=== PATIENT | female | born 1945 | race Caucasian/White ===

== ENCOUNTER → 2016-04-28 | Day surgery (SDC) | payer BC ==
[2016-04-19 11:19] VITALS: Ht 154.9 cm; Wt 63.6 kg
[~2016-04-28] VITALS: Ht 154.9 cm; Wt 63.6 kg
[~2016-04-28] MED LIST: ASPCH81X PO; ATOR10TA88 PO; CIPR-255 PO; COEN100C11 PO; LIDOCAINE HCL 2% 2 ML VIAL (20MG/ML) ONE; MIDAZOLAM HCL 1 MG/ML 2ML VIAL ONE; MULT-240 PO; MULT-506 PO; OMEG10007 PO; ONDANSETRON INJ 2 MG/ML 2 ML VIAL ONE; PROPOFOL IV EMULSION 10 MG/ML 20 ML VIAL IV ONE; SODIUM CHLORIDE 0.9% 500ML 500 ML IV ONE
--- NOTE | 2016-04-28 14:36 | Endo History and Physical ---
History & Physical Date of Service: Apr 28, 2016. Chief Complaint: Screening Referring Physician: Dr. Reese Chin History of Present Illness 71 yo CF who presents for screening colonoscopy. Past Surgical History Hx Cardiac Surgery: No Hx Internal Defibrillator: No Hx Pacemaker: No Hx Abdominal Surgery: Yes (CERVICAL PROCEDURE?) Hx of Implantable Prosthesis: No Hx Post-Op Nausea and Vomiting: No Hx Cancer Surgery: No Hx Thoracic Surgery: No Hx Orthopedic: No Hx Urinary Tract Surgery: No Family History None Social History Smoking Status: Never Smoker Hx Substance Use: No Hx Alcohol Use: Yes (OCCASSIONALLY) Allergies Coded Allergies: Succinylcholine (Verified Allergy, Unknown, WOULD NOT WAKE UP, SISTER HAD BAD REACTION, 04/19/16) Thimerosal (Verified Allergy, Unknown, EYE IRRITATION, 04/19/16) Current Medications Reported Home Medications Medications Dose Route/Sig Max Daily Dose Days Date Category Aspirin Chewable (Aspirin) 81 Mg Chew 81 Mg PO DAILY AFTERNOON 04/19/16 Reported Coq-10 (Coenzyme Q10 (Ubidecarenone)) 100 Mg Cap 1 Cap PO DAILY AFTERNOON 04/19/16 Reported Multivitamin (Multivitamins) Tab 1 Tab PO QAM 04/19/16 Reported Kincaid-3 (Fish Oil) 1 Ea Cap 1 Cap PO DAILY AFTERNOON 04/19/16 Reported Lipitor (Atorvastatin Calcium) 10 Mg Tab 10 Mg PO HS 04/19/16 Reported Vital Signs Weight (Kilograms): 63.64 Height (Feet): 5 Height (Inches): 1 Date Time Temp Pulse Resp B/P Pulse Ox O2 Delivery O2 Flow Rate FiO2 04/28/16 14:22 36.9 77 20 136/78 96 Room Air Physical Exam General Appearance: WD/WN, no apparent distress Respiratory/Chest: Auscultation: breath sounds normal Cardiovascular: Heart Auscultation: RRR Abdomen: Bowel Sounds: normal Inspection & Palpation: soft, non-distended, no tenderness, guarding & rebound Assessment and Plan Assessment: 71 yo CF who presents for screening colonoscopy. Plan: Proceed with colonoscopy
--- NOTE | 2016-04-28 15:52 | Discharge Instructions ---
Endoscopy Patient Instructions Date / Procedure(s) Performed Apr 28, 2016. Colonoscopy Allergy Information Coded Allergies: Succinylcholine (Verified Adverse Reaction, Severe, WOULD NOT WAKE UP, SISTER HAD BAD REACTION, 04/28/16) Thimerosal (Verified Adverse Reaction, Unknown, EYE IRRITATION, 04/28/16) Discharge Date / Findings Apr 28, 2016. Diverticulosis Medication Instructions Stopped Medication(s): Patient was told to not take any of her vitamins until after the procedure today. OK to resume all medications today as prescribed Reported Home Medications Medications Dose Route/Sig Max Daily Dose Days Date Category Aspirin Chewable (Aspirin) 81 Mg Chew 81 Mg PO DAILY AFTERNOON 04/19/16 Reported Coq-10 (Coenzyme Q10 (Ubidecarenone)) 100 Mg Cap 1 Cap PO DAILY AFTERNOON 04/19/16 Reported Multivitamin (Multivitamins) Tab 1 Tab PO QAM 04/19/16 Reported Taiban-3 (Fish Oil) 1 Ea Cap 1 Cap PO DAILY AFTERNOON 04/19/16 Reported Lipitor (Atorvastatin Calcium) 10 Mg Tab 10 Mg PO HS 04/19/16 Reported Provider Instructions Activity Restrictions - No exercising or heavy lifting for 24 hours. - Do not drink alcohol the day of the procedure. - Do not drive a car or operate machinery until the day after the procedure. - Do not make any important decisions or sign important papers in 24 hours after the procedure. Following Day: - Return to full activity which may include returning to work/school. Diet Start your diet with liquids and light foods (jello, soup, juice, toast). Then eat your usual diet if not nauseated. Treatment For Common After Affects For mild abdominal pain, bloating, or excessive gas: - Rest - Eat lightly - Lie on right side Follow-Up Information Follow-up with Dr. Reese Chin as scheduled Anesthesia Information What You Should Know You have had a procedure that required some medicine to reduce anxiety and discomfort. This treatment is called moderate sedation. After receiving the treatment, you may be sleepy, but you will be able to breathe on your own. The effects of the treatment may last for several hours. Follow these instructions along with Activity/Diet recommendations noted above: * Do NOT do anything where dizziness or clumsiness would be dangerous. * Rest quietly at home today, then you can be up and about tomorrow. * Have a responsible person stay with you the rest of today. * You may have had an I.V. today. If so, you may take the dressing off later today. Recommendations Call your doctor if: * Trouble breathing * Continuous vomiting for more than 24 hours * Temperature above 101 degrees * Severe abdominal pain or bloating * Pain not relieved by pain medicine ordered * There is increased drainage or redness from any incision * A large amount of rectal bleeding greater than 2-3 tablespoons. (If you had a polyp/s removed or have hemorrhoids, a small amount of blood - from the rectum is to be expected.) * You have any unanswered questions or concerns. IN THE EVENT OF A SERIOUS EMERGENCY, GO TO THE NEAREST EMERGENCY ROOM Your discharge instructions were prepared by provider Abdulaziz Scanlon. Patient Instructions Signature Page Laila Gleason Patient (or Guardian) Signature/Date: I have read and understand the instructions given to me by my caregivers. Caregiver/RN/Doctor Signature/Date: The above-named patient and/or guardian has received patient instructions on this date. + Original Patient Signature Page (only) stays with chart. Please make copy for patient.
--- NOTE | 2016-04-28 15:57 | Anesthesiology Progress Note ---
Anesthesia Post Op Note Date & Time Apr 28, 2016 at 15:56 Vital Signs Pain Intensity: 0 Vital Signs Past 12 Hours Date Time Temp Pulse Resp B/P Pulse Ox O2 Delivery O2 Flow Rate FiO2 04/28/16 15:48 65 18 106/68 99 Room Air 04/28/16 15:44 101/62 04/28/16 15:34 61 18 89/52 99 Room Air 04/28/16 14:22 36.9 77 20 136/78 96 Room Air Notes Mental Status: alert / awake / arousable, participated in evaluation Pt Amnestic to Procedure: Yes Nausea / Vomiting: adequately controlled Pain: adequately controlled Airway Patency, RR, SpO2: stable & adequate BP & HR: stable & adequate Hydration State: stable & adequate Anesthetic Complications: no major complications apparent
--- NOTE | 2016-04-28 15:58 | GI REPORT ---
Procedure Date: 04/28/2016 3:04 PM Procedure: Colonoscopy Indications: Screening for colorectal malignant neoplasm Medicines: Monitored Anesthesia Care Complications: No immediate complications. Estimated Blood Loss: Estimated blood loss: none. Procedure: Pre-Anesthesia Assessment: - Prior to the procedure, a History and Physical was performed, and patient medications and allergies were reviewed. The patient's tolerance of previous anesthesia was also reviewed. The risks and benefits of the procedure and the sedation options and risks were discussed with the patient. All questions were answered, and informed consent was obtained. Prior Anticoagulants: The patient has taken aspirin, last dose was 1 day prior to procedure. ASA Grade Assessment: II - A patient with mild systemic disease. After reviewing the risks and benefits, the patient was deemed in satisfactory condition to undergo the procedure. After I obtained informed consent, the scope was passed under direct vision. Throughout the procedure, the patient's blood pressure, pulse, and oxygen saturations were monitored continuously. The scope was introduced through the anus and advanced to the terminal ileum. The colonoscopy was performed without difficulty. The patient tolerated the procedure well. The quality of the bowel preparation was good. The terminal ileum, ileocecal valve, appendiceal orifice, and rectum were photographed. Findings: Multiple small-mouthed diverticula were found in the sigmoid colon. Impression: - Diverticulosis in the sigmoid colon. - No specimens collected. Recommendation: - Resume previous diet. - Continue present medications. - Repeat colonoscopy in 10 years for surveillance. - Return to primary care physician as previously scheduled. Abdulaziz Scanlon DO 04/28/2016 3:57:35 PM This report has been signed electronically. Note Initiated On: 04/28/2016 3:04 PM
[2016-04-28 16:03] VITALS: BP 110/75; PULSE 55; O2SAT 99
== END | disposition home or self-care (01) ==
LOC: C.GI 13:32
PROVIDERS: ATTEND Internal Medicine
DX: Z12.11 Encounter for screening for malignant neoplasm of colon (principal); K57.30 Diverticulosis of large intestine without perforation or abscess without bleeding

== ENCOUNTER → 2016-09-28 | Outpatient (CLI) | payer BC ==
[~2016-09-28] MED LIST changes: +ATOR10TA82 PO; -ATOR10TA88 PO; -LIDOCAINE HCL 2% 2 ML VIAL (20MG/ML) ONE; -MIDAZOLAM HCL 1 MG/ML 2ML VIAL ONE; -ONDANSETRON INJ 2 MG/ML 2 ML VIAL ONE; -PROPOFOL IV EMULSION 10 MG/ML 20 ML VIAL IV ONE; -SODIUM CHLORIDE 0.9% 500ML 500 ML IV ONE
[2016-09-28 12:23] LABS: BASO % 0.2 %; BASO ABS # 0.01 K/uL (0-0.2); COMPLETE YES; EOS % 5.5 %; HEMATOCRIT 38.3 % (37-47); IG% 0.2 %; LYMPH % 32.5 %; LYMPH ABS # 1.61 K/uL (1.2-3.4); MEAN CELL VOLUME 89.7 fL (80-100); MEAN CORPUSCULAR HEMOGLOBIN 29.3 pg (25-34); MEAN CORPUSCULAR HGB CONC 32.6 g/dl (32-36); MEAN PLATELET VOLUME 10.5 fL (7.4-10.4); MONO % 8.9 %; NEUT % 52.7 %; PLATELET COUNT 281 K/uL (130-400); RED BLOOD COUNT 4.27 M/uL (4.2-5.4); WHITE BLOOD COUNT 4.95 K/uL (4.8-10.8)
[2016-09-28 12:38] LABS: URINE APPEARANCE CLEAR (CLEAR); URINE BILIRUBIN NEG (NEG); URINE COLOR YELLOW; URINE NITRITE NEG (NEG); URINE PH 5.5 (4.5-7.5); URINE SPECIFIC GRAVITY 1.012 (1.000-1.030); UROBILINOGEN NEG (NEG); ZZUR CULT IF INDIC CLEAN CATCH YES
[2016-09-28 12:47] LABS: MANUAL MICROSCOPIC REQUIRED? NO; REVIEW REQ? NO
[2016-09-28 13:53] LABS: ALT/SGPT 23 U/L (12-78); BLOOD UREA NITROGEN 18 mg/dl (7-18); BUN/CREATININE RATIO 16.3 (10-20); CALCIUM 9.2 mg/dl (8.5-10.1); CARBON DIOXIDE 28 mmol/L (21-32); CHLORIDE 105 mmol/L (98-107); CHOLESTEROL 165 mg/dl (0-200); GLUCOSE 89 mg/dl (70-99); SODIUM 139 mmol/L (136-145); TRIGLYCERIDES 56 mg/dl (0-150); VERY LOW DENSITY LIPOPROT CALC 11 mg/dl
[2016-09-28 13:57] LABS: ALB/GLOB RATIO 1.1 (0.9-2); ALKALINE PHOSPHATASE 92 U/L (45-117); AST/SGOT 15 U/L (15-37); CHOLESTEROL/HDL RATIO 2.2; HDL CHOLESTEROL 75 mg/dl; LDL CHOLESTEROL CALCULATED 79 mg/dl
== END | disposition home or self-care (01) ==
LOC: C.LABBFT 08:15
PROVIDERS: ATTEND Internal Medicine
DX: Z13.6 Encounter for screening for cardiovascular disorders (principal); E78.5 Hyperlipidemia, unspecified; E55.9 Vitamin D deficiency, unspecified

== ENCOUNTER 2016-10-04 21:57 | Emergency (ER) | payer BC ==
[~2016-10-04] VITALS: Ht 154.9 cm; Wt 63.5 kg
[~2016-10-04 21:57] MED LIST changes: -ATOR10TA82 PO; +ATOR10TA88 PO; -CIPR-255 PO; -MULT-240 PO
[2016-10-04 22:01] VITALS: Ht 154.9 cm; Wt 63.5 kg
[2016-10-04] MEDS ORDERED: MULT-240 PO (22:34)
[2016-10-04] MEDS ORDERED: ACETAMINOPHEN 500 MG TAB PO STA (22:38)
[2016-10-04] MEDS ORDERED: SODIUM CHLORIDE 0.9% 1000ML 1,000 ML IV STA ×2 (22:38)
[2016-10-04] MEDS ORDERED: CEFTRIAXONE SOD INJ 1 GM ADDVIAL IV STA (22:59)
[2016-10-04 23:12] LABS: URINE APPEARANCE CLEAR (CLEAR); URINE BILIRUBIN NEG (NEG); URINE COLOR YELLOW; URINE NITRITE NEG (NEG); URINE SPECIFIC GRAVITY 1.009 (1.000-1.030); UROBILINOGEN NEG (NEG)
[2016-10-04 23:13] LABS: MANUAL MICROSCOPIC REQUIRED? NO; REVIEW REQ? NO
[2016-10-04 23:18] VITALS: O2SAT 98
[2016-10-04 23:21] LABS: BASO % 0.2 %; BASO ABS # 0.01 K/uL (0-0.2); COMPLETE YES; EOS % 0.4 %; HEMATOCRIT 36.7 % (37-47); IG% 0.4 %; LYMPH % 18.2 %; LYMPH ABS # 0.84 K/uL (1.2-3.4); MEAN CORPUSCULAR HEMOGLOBIN 29.6 pg (25-34); MEAN CORPUSCULAR HGB CONC 34.1 g/dl (32-36); MEAN PLATELET VOLUME 9.8 fL (7.4-10.4); MONO % 16.7 %; NEUT % 64.1 %; PLATELET COUNT 192 K/uL (130-400); RED BLOOD COUNT 4.22 M/uL (4.2-5.4); WHITE BLOOD COUNT 4.61 K/uL (4.8-10.8)
[2016-10-04 23:30] LABS: PROTHROMBIN TIME (PATIENT) 10.8 SECONDS (9.0-12.0)
[2016-10-04 23:41] LABS: ALT/SGPT 28 U/L (12-78); AST/SGOT 26 U/L (15-37); BLOOD UREA NITROGEN 16 mg/dl (7-18); BUN/CREATININE RATIO 10.8 (10-20); CALCIUM 9.1 mg/dl (8.5-10.1); CARBON DIOXIDE 26 mmol/L (21-32); CHLORIDE 101 mmol/L (98-107); GLUCOSE 90 mg/dl (70-99); MAGNESIUM 2.2 mg/dl (1.8-2.4); SODIUM 137 mmol/L (136-145)
[2016-10-04 23:49] LABS: ALKALINE PHOSPHATASE 84 U/L (45-117); THYROID STIMULATING HORMONE 0.773 uIu/ml (0.300-4.500)
[2016-10-05 00:08] LABS: LYME DISEASE AB IGG NEG (NEG); LYME DISEASE AB IGM NEG (NEG)
[2016-10-05 00:12] VITALS: TEMP 37.3
[2016-10-05] MEDS ORDERED: CIPROFLOXACIN 500MG HOME PACK PO ONE (00:30)
[2016-10-05 00:31] VITALS: BP 107/58
[2016-10-05] MEDS ORDERED: CIPR-255 PO (00:31)
[2016-10-05 00:47] VITALS: PULSE 67; O2SAT 94
--- NOTE | 2016-10-05 02:20 | EMERGENCY ROOM VISIT NOTE ---
History Report prepared by Isac: Ashley Vivar Under the Supervision of: Dr. Ankush Quintanilla M.D. First contact with patient: 22:38 Chief Complaint: FEVER Stated Complaint: REACTION TO ANTIBIOTIC?- FEVER - ACHE-NOT HUNGRY History of Present Illness The patient is a 71 year old female who presents to the Emergency Room with complaints of a persistent fever for the past 2 days. She reports last week she was found to have a UTI at Dr. Chin's office and was placed on antibiotics, which she finished yesterday. On September 28, she had blood work done and her CBC was normal, chemistry's and LFT's were normal and her urine sample culture grew out e-coli, which was sensitive to Bactrim and resistant to Ampicillin. Her urinary symptoms have been improving. The patient denies any recent tick bites or bug bites. She notes she was out of town this past week, and states while she was away, she started experiencing back pain and chills. She has also had a decreased appetite for the past few days. Pt denies LOC, headache, diaphoresis, visual changes, neck pain, chest pain, breathing difficulties, nausea, vomiting , abdominal pain, melena, hematochezia, numbness, weakness, lymphadenopathy, rash, or other complaints. Source of History: patient Onset: 2 days [employer] Position: other (global) Timing: other (persistent) Associated Symptoms: + chills, + back pain Review of Systems See HPI for pertinent positives and negatives. A total of ten systems were reviewed and were otherwise negative. Past Medical & Surgical Medical Problems: (1) UTI (urinary tract infection) Family History Heart disease Hypertension Kidney disease Kidney stones Social History Smoking Status: Never Smoker Smokeless Tobacco Use: No Alcohol Use: occasionally Drug Use: none Marital Status: Housing Status: lives with family Occupation Status: retired Current/Historical Medications Scheduled Atorvastatin (Lipitor), 10 MG PO HS Ciprofloxacin Hcl (Cipro), 500 MG PO BID Coenzyme Q10 (Ubidecarenone) (Coq-10), 100 MG PO DAILY AFTERNOON Fish Oil (Kingsland-3), 1 CAP PO DAILY AFTERNOON Multiple Vitamins W/ Minerals (Womens One Daily), 1 TAB PO DAILY Allergies Coded Allergies: Succinylcholine (Verified Adverse Reaction, Severe, WOULD NOT WAKE UP, SISTER HAD BAD REACTION, 04/28/16) Thimerosal (Verified Adverse Reaction, Unknown, EYE IRRITATION, 04/28/16) Physical Exam Vital Signs Date Time Temp Pulse Resp B/P (MAP) Pulse Ox O2 Delivery O2 Flow Rate FiO2 10/05/16 00:47 67 19 94 10/05/16 00:32 64 19 92 10/05/16 00:31 107/58 10/05/16 00:17 65 18 95 10/05/16 00:12 37.3 64 17 92 10/05/16 00:00 103/57 10/04/16 23:57 65 21 94 10/04/16 23:42 64 19 98 10/04/16 23:31 119/65 10/04/16 23:27 62 13 99 10/04/16 23:18 98 Room Air 10/04/16 23:14 125/71 10/04/16 23:12 64 20 94 10/04/16 23:10 68 10/04/16 22:01 38.0 78 18 126/73 97 Room Air Physical Exam GENERAL: Awake, alert, tired-appearing, in no distress HENT: Normocephalic, atraumatic. Oropharynx unremarkable. EYES: Normal conjunctiva. Sclera non-icteric. NECK: Supple. No nuchal rigidity. FROM. No JVD. RESPIRATORY: Clear to auscultation. CARDIAC: Regular rate, normal rhythm. Extremities warm and well perfused. Pulses equal. ABDOMEN: Soft, non-distended. No tenderness to palpation. No rebound or guarding. No masses. RECTAL: Deferred. MUSCULOSKELETAL: Chest examination reveals no tenderness. The back is symmetrical on inspection without obvious abnormality. There is no CVA tenderness to palpation. No joint edema. LOWER EXTREMITIES: Calves are equal size bilaterally and non-tender. No edema. No discoloration. NEURO: Normal sensorium. No sensory or motor deficits noted. SKIN: No rash or jaundice noted. Medical Decision & Procedures ER Provider Diagnostic Interpretation: Radiology results as stated below per my review interpretation: Chest x-ray. Findings: A chest x-ray was performed and revealed no pneumothorax , effusion, infiltrate, pulmonary edema, free air under the diaphragm, or wide mediastinum. Laboratory Results 10/04/16 22:55 Red Blood Count 4.22, Mean Corpuscular Volume 87.0, Mean Corpuscular Hemoglobin 29.6, Mean Corpuscular Hemoglobin Concent 34.1, Mean Platelet Volume 9.8, Neutrophils (%) (Auto) 64.1, Lymphocytes (%) (Auto) 18.2, Monocytes (%) (Auto) 16.7, Eosinophils (%) (Auto) 0.4, Basophils (%) (Auto) 0.2, Neutrophils # (Auto ) 2.95, Lymphocytes # (Auto) 0.84, Monocytes # (Auto) 0.77, Eosinophils # (Auto ) 0.02, Basophils # (Auto) 0.01 10/04/16 22:55 Test 10/04/16 22:55 10/04/16 23:07 White Blood Count 4.61 K/uL (4.8-10.8) Red Blood Count 4.22 M/uL (4.2-5.4) Hemoglobin 12.5 g/dL (12.0-16.0) Hematocrit 36.7 % (37-47) Mean Corpuscular Volume 87.0 fL (80-100) Mean Corpuscular Hemoglobin 29.6 pg (25-34) Mean Corpuscular Hemoglobin Concent 34.1 g/dl (32-36) Platelet Count 192 K/uL (130-400) Mean Platelet Volume 9.8 fL (7.4-10.4) Neutrophils (%) (Auto) 64.1 % Lymphocytes (%) (Auto) 18.2 % Monocytes (%) (Auto) 16.7 % Eosinophils (%) (Auto) 0.4 % Basophils (%) (Auto) 0.2 % Neutrophils # (Auto) 2.95 K/uL (1.4-6.5) Lymphocytes # (Auto) 0.84 K/uL (1.2-3.4) Monocytes # (Auto) 0.77 K/uL (0.11-0.59) Eosinophils # (Auto) 0.02 K/uL (0-0.5) Basophils # (Auto) 0.01 K/uL (0-0.2) RDW Standard Deviation 41.7 fL (36.4-46.3) RDW Coefficient of Variation 12.9 % (11.5-14.5) Immature Granulocyte % (Auto) 0.4 % Immature Granulocyte # (Auto) 0.02 K/uL (0.00-0.02) Prothrombin Time 10.8 SECONDS (9.0-12.0) Prothromb Time International Ratio 1.0 (0.9-1.1) Activated Partial Thromboplast Time 26.6 SECONDS (21.0-31.0) Partial Thromboplastin Ratio 1.0 Urine Color YELLOW Urine Appearance CLEAR (CLEAR) Urine pH 6.0 (4.5-7.5) Urine Specific Lee 1.009 (1.000-1.030) Urine Protein NEG (NEG) Urine Glucose (UA) NEG (NEG) Urine Ketones NEG (NEG) Urine Occult Blood TRACE (NEG) Urine Nitrite NEG (NEG) Urine Bilirubin NEG (NEG) Urine Urobilinogen NEG (NEG) Urine Leukocyte Esterase TRACE (NEG) Urine WBC (Auto) 0 /hpf (0-5) Urine RBC (Auto) 0-4 /hpf (0-4) Urine Hyaline Casts (Auto) 0 /lpf (0-5) Urine Epithelial Cells (Auto) 5-10 /lpf (0-5) Urine Bacteria (Auto) NEG (NEG) Anion Gap 10.0 mmol/L (3-11) Est Creatinine Clear Calc Drug Dose 30.2 ml/min Estimated GFR () 40.8 Estimated GFR (Non- 35.2 BUN/Creatinine Ratio 10.8 (10-20) Calcium Level 9.1 mg/dl (8.5-10.1) Magnesium Level 2.2 mg/dl (1.8-2.4) Total Bilirubin 0.3 mg/dl (0.2-1) Direct Bilirubin < 0.1 mg/dl (0-0.2) Aspartate Amino Transf (AST/SGOT) 26 U/L (15-37) Alanine Aminotransferase (ALT/SGPT) 28 U/L (12-78) Alkaline Phosphatase 84 U/L (45-117) Total Creatine Kinase 100 U/L (26-192) Creatine Kinase MB < 0.5 ng/ml (0.5-3.6) Creatine Kinase MB Ratio (0-3.0) Troponin I < 0.015 ng/ml (0-0.045) Total Protein 7.4 gm/dl (6.4-8.2) Albumin 3.8 gm/dl (3.4-5.0) Lipase 756 U/L (73-393) Thyroid Stimulating Hormone (TSH) 0.773 uIu/ml (0.300-4.500) Lyme Disease IgG Antibody NEG (NEG) Lyme Disease IgM Antibody NEG (NEG) Bedside Lactic Acid Venous 0.62 mmol/L (0.90-1.70) Laboratory results reviewed by me Medications Administered Medications (Trade) Dose Ordered Sig/Fritz Route Start Time Stop Time Status Last Admin Dose Admin Sodium Chloride 1,000 ml @ 999 mls/hr Q1H1M STAT IV 10/04/16 22:38 10/04/16 23:38 DC 10/04/16 23:13 999 MLS/HR Sodium Chloride 1,000 ml @ 125 mls/hr Q8H STAT IV 10/04/16 22:38 10/05/16 01:28 DC 10/04/16 23:11 125 MLS/HR Acetaminophen (Tylenol Tab) 1,000 mg NOW STAT PO 10/04/16 22:38 10/04/16 22:40 DC 10/04/16 23:17 1,000 MG Ceftriaxone Sodium (Rocephin Inj) 1 gm NOW STAT IV 10/04/16 22:59 10/04/16 23:00 DC 10/04/16 23:16 1 GM Ciprofloxacin (Cipro 500MG Home Pack) 1 homepack UD ONCE PO 10/05/16 00:30 10/05/16 00:31 DC 10/05/16 00:53 1 HOMEPACK ECG Indication: other (fever) Rate (beats per minute): 58 Rhythm: sinus bradycardia Findings: no acute ischemic change, no ectopy ED Course 2256: The patient was evaluated in room B4. A complete history and physical exam was performed. 2238: Acetaminophen 1000 mg PO, NSS 1000 ml @ 125 mls/hr IV, NSS 1000 ml @ 999 mls/hr IV. 2259: Rocephin 1 gm IV. 0030: Ciprofloxacin 1 homepack PO. 0035: I reevaluated the patient. She is feeling better. I discussed her results and discharge instructions and she verbalized complete understanding and agreement. Medical Decision Medication Reconciliation: I attest that I have personally reviewed the patient' s current medication list. Blood pressure screening: Patient was found to have normal blood pressure on screening and does not require follow-up. Triage Nursing notes reviewed. The patient's presentation and history were concerning for fever and recent UTI Etiologies such as urinary tract infection, sepsis, bacteremia, medication reaction, viral syndrome, otitis, pharyngitis, pneumonia, meningitis, as well as others were entertained. The patient was evaluated. Clinically she was doing well. She was hemodynamically stable. She had a mild fever. Record was reviewed with regards to her infection. The patient was cultured. A CBC, chemistry panel, LFTs, Lyme titer, and lactate were done and were negative. Urinalysis did not reveal any significant abnormalities. Her lipase was minimally elevated although she has not had any abdominal pain. Chest x-ray did not reveal any evidence of pneumonia. The patient was given a dose of IV Rocephin given her urinary symptoms, infection and previous complaints of back pain. She was hydrated. She was given Tylenol. On reassessment she was feeling better. This may be the fact that her infection has not cleared with her current antibiotic. The patient will stop the Bactrim and will start Cipro. If she worsens she will come back to the emergency department. She has no headache or neck stiffness. The patient has no significant flank pain. Advanced imaging was felt to be unnecessary at this time. Patient will follow-up closely as an outpatient. She will discuss elevated lipase with the primary team. By the evaluation outlined above other emergent etiologies such as those listed in the differential, as well as others, were deemed relatively unlikely. The patient was educated about the findings as listed above. All questions were answered and the patient was pleased with the treatment. Return instructions were outlined and the patient was discharged in stable condition. The patient was referred to her for follow-up for a recheck of the current condition. Impression Primary Impression: Febrile illness Additional Impression: UTI (urinary tract infection) Scribe Attestation The scribe's documentation has been prepared under my direction and personally reviewed by me in its entirety. I confirm that the note above accurately reflects all work, treatment, procedures, and medical decision making performed by me. Departure Information Dispostion Home / Self-Care Prescriptions Ciprofloxacin Hcl (CIPRO) 500 Mg Tab 500 MG PO BID, #14 TAB Prov: Ankush Quintanilla MD 10/05/16 Referrals No Doctor, Assigned (PCP) Patient Instructions My [facility] Additional Instructions Ciprofloxacin(Cipro) 500mg: Take one pill twice daily for 7 days. All antibiotics can cause diarrhea. If this occurs and you feel worse or it does not resolve in 1-2 days follow up with your doctor or return to the Emergency Department as this could be signs of serious underlying problems. If you experience any pain in your tendons or any tendon injury return to the ER for re -evaluation. Any medication can cause an allergic reaction, stop the pills immediately and return to the ER for rash, hives, breathing difficulties, or swelling. Ibuprofen(Motrin, Advil) may be used for fever or pain. Use 600mg every six hours as needed. Take with food. Avoid using more than 2400mg in a 24 hour period. Do not use 2400mg per day for more than three consecutive days without physician direction. Prolonged inappropriate use can lead to stomach upset or ulcers. (AND/OR) Acetaminophen(Tylenol) may be used for fever or pain. Use 1000mg every six hours as needed. Avoid using more than 4000mg in a 24 hour period. Rest and drink plenty of fluids. Continue current medications. Return to the ER immediately for worsening or persistent abdominal pain, vomiting, fevers, back or flank pain, worsening of your condition, or as needed. Follow up with your primary physician within 2-3 days for a recheck of the current condition. Problem Qualifiers
--- NOTE | 2016-10-05 10:15 | DIAGNOSTIC IMAGING REPORT ---
SINGLE VIEW CHEST CLINICAL HISTORY: Generalized weakness. FINDINGS: An AP, portable, upright chest radiograph is compared to study dated 07/21/2011 and correlated with chest CT dated 08/02/2011. The examination is degraded by portable technique and patient rotation. The cardiomediastinal silhouette is unremarkable. There is left basilar atelectasis. No airspace consolidation is seen typical for pneumonia and there is no large pleural effusion. Chronic interstitial thickening and apical scarring are unchanged. No pneumothorax is seen. The skeletal structures are osteopenic. The bony thorax is grossly intact. IMPRESSION: No acute cardiopulmonary abnormality. Electronically signed by: Reji Suazo M.D. 10/05/2016 10:14 AM Dictated Date/Time: 10/05/2016 10:12 AM
== END 2016-10-05 00:53 | disposition home or self-care (01) ==
LOC: C.EDB 21:58
DX: R50.9 Fever, unspecified (principal); N39.0 Urinary tract infection, site not specified; Z82.49 Family history of ischemic heart disease and other diseases of the circulatory system; Z84.1 Family history of disorders of kidney and ureter; Z79.899 Other long term (current) drug therapy

== ENCOUNTER → 2016-10-07 | Outpatient (CLI) | payer BC ==
[~2016-10-07] MED LIST changes: -ASPCH81X PO; +CIPR-255 PO; +MULT-240 PO; -MULT-506 PO
--- NOTE | 2016-10-07 10:42 | DIAGNOSTIC IMAGING REPORT ---
RIGHT LOWER EXTREMITY VENOUS DOPPLER CLINICAL HISTORY: Right leg pain. COMPARISON STUDY: No previous studies for comparison. TECHNIQUE: Sonography of the deep venous system of the right lower extremity was performed. Compression and augmentation were evaluated. FINDINGS: The common femoral, superficial femoral and popliteal veins were compressible. Augmentation was normal. Flow was shown within the deep calf vessels. IMPRESSION: No evidence of deep venous thrombus within the right lower extremity. Electronically signed by: Mann Rodgers M.D. 10/07/2016 10:41 AM Dictated Date/Time: 10/07/2016 10:40 AM
== END | disposition home or self-care (01) ==
LOC: C.ULTR 10:04
PROVIDERS: ATTEND Physician Assistant Medical
DX: M79.604 Pain in right leg (principal)

== ENCOUNTER → 2016-11-18 | Outpatient (CLI) | payer BC ==
[2016-11-18 13:11] LABS: URINE APPEARANCE CLEAR (CLEAR); URINE BILIRUBIN NEG (NEG); URINE COLOR YELLOW; URINE NITRITE NEG (NEG); URINE PH 5.5 (4.5-7.5); URINE SPECIFIC GRAVITY 1.016 (1.000-1.030); UROBILINOGEN NEG (NEG)
[2016-11-18 13:24] LABS: MANUAL MICROSCOPIC REQUIRED? NO; REVIEW REQ? NO
== END | disposition home or self-care (01) ==
LOC: C.LABSPEC 12:30
PROVIDERS: ATTEND Obstetrics & Gynecology
DX: R35.0 Frequency of micturition (principal)

== ENCOUNTER → 2017-05-19 | Outpatient (CLI) | payer BC ==
[~2017-05-19] MED LIST changes: +ATOR10TA82 PO; -ATOR10TA88 PO
--- NOTE | 2017-05-19 14:34 | DIAGNOSTIC IMAGING REPORT ---
L KNEE 4 OR MORE HISTORY: 72 years-old Female ACUTE LT KNEE PAIN acute left knee pain without reported trauma COMPARISON: None available TECHNIQUE: Single standing AP view of the bilateral knees with sunrise, AP axial and lateral views of the left knee FINDINGS: There are mild tricompartmental degenerative changes about the left knee with mild medial and lateral compartment osteoarthritis seen on the right. Mild spurring of the tibial spines noted on the left. Moderate sized joint effusion. No definite intra-articular loose body. Suggested varices about the lower leg. IMPRESSION: 1. Moderate left knee joint effusion without acute bony abnormality. 2. Mild tricompartment osteoarthritis. The above report was generated using voice recognition software. It may contain grammatical, syntax or spelling errors. Electronically signed by: Hollis Vick M.D. 05/19/2017 2:33 PM Dictated Date/Time: 05/19/2017 2:32 PM
== END | disposition home or self-care (01) ==
LOC: C.RDSM 20:18
PROVIDERS: ATTEND Internal Medicine
DX: M25.569 Pain in unspecified knee (principal)

== ENCOUNTER → 2017-05-20 | Outpatient (CLI) | payer BC ==
--- NOTE | 2017-05-20 14:57 | MAMMOGRAPHY REPORT ---
BILATERAL DIGITAL SCREENING MAMMOGRAM TOMOSYNTHESIS WITH CAD: 05/20/2017 CLINICAL HISTORY: Routine screening. Patient has no complaints. TECHNIQUE: Breast tomosynthesis in addition to standard 2D mammography was performed. Current study was also evaluated with a Computer Aided Detection (CAD) system. COMPARISON: Comparison is made to exams dated: 09/24/2010 mammogram, 02/13/2009 mammogram - [facility], 03/24/2007, and 03/18/2006 mammogram - [facility]. BREAST COMPOSITION: There are scattered areas of fibroglandular density in both breasts. FINDINGS: No suspicious masses, calcifications, or areas of architectural distortion are noted in ei ther breast. There has been no significant interval change compared to prior exams. Asymmetry within the right medial breast middle depth on the cc view appears similar to prior exams including the and 2005 exam, and is felt to represent normal overlapping fibroglandular tissue. IMPRESSION: ACR BI-RADS CATEGORY 2: BENIGN There is no mammographic evidence of malignancy. A 1 year screening mammogram is recommended. The pa tient will receive written notification of the results. Approximately 10% of breast cancers are not detected with mammography. A negative mammographic report should not delay biopsy if a clinically suggestive mass is present. Rivka Burt M.D. ah/:05/20/2017 10:57:46 Structural Ironworker: Siri MOY(Shakeel)([place]), [facility] letter sent: Normal 1/2 BI-RADS Code: ACR BI-RADS Category 2: Benign
== END | disposition home or self-care (01) ==
LOC: C.MAMM 10:32
PROVIDERS: ATTEND Obstetrics & Gynecology
DX: Z12.31 Encounter for screening mammogram for malignant neoplasm of breast (principal)